=== PATIENT | female | born 1965 | race Caucasian/White ===

== ENCOUNTER 2017-04-25 12:51 | Emergency (ER) | payer MEDICARE, OTHER ==
[2017-04-25 15:48] LABS: BASOPHIL 0.3 % (0-2); EOSINOPHIL 0.1 % (0-5); HCT 44.2 % (37.0-47.0); HGB 15.1 g/dl (12.5-16.0); LYMPHOCYTE 13.4 % (15-48); MCH 30.6 pg (25.0-31.0); MCHC 34.2 g/dL (32.0-36.0); MCV 89.5 fL (78.0-100.0); MONOCYTE 6.9 % (0-12); NEUTROPHIL 79.3 % (41-80); PLT 416 K/uL (150-400); RBC 4.94 M/uL (4.20-5.40); RDW 15.6 % (11.5-14.0)
[2017-04-25 16:00] LABS: INR 0.95 (0.9-1.2); PROTHROMBIN TIME 12.3 SECONDS (11.7-14.0); PTT 27.8 SECONDS (23.2-31.4)
[2017-04-25 16:11] LABS: ALBUMIN 4.8 g/dL (3.5-5.0); BILIRUBIN - TOTAL 0.2 mg/dL (0.1-1.0); CKMB 1.97 ng/mL (0.97-4.94); CREATININE 0.6 mg/dL (0.5-1.0); GLOBULIN (CALCULATION) 2.6 g/dL (2.2-4.2); MAGNESIUM 2.22 mg/dL (1.40-2.10); MYOGLOBIN 23 ng/mL (26-65); POTASSIUM 3.5 mmol/L (3.5-5.1); PRO-BNP 61 pg/mL (0-125); TOTAL PROTEIN 7.4 g/dL (6.4-8.3); TROPONIN T < 0.010 ng/mL
== END 2017-04-25 18:20 | disposition home or self-care (01) ==
LOC: FER 12:51
PROVIDERS: Emergency Medicine
DX: I10 Essential (primary) hypertension (principal); K21.9 Gastro-esophageal reflux disease without esophagitis; E78.5 Hyperlipidemia, unspecified; F17.210 Nicotine dependence, cigarettes, uncomplicated; Z88.0 Allergy status to penicillin; Z88.5 Allergy status to narcotic agent; Z88.6 Allergy status to analgesic agent; Z79.899 Other long term (current) drug therapy; Z79.02 Long term (current) use of antithrombotics/antiplatelets
CPT/HCPCS: 36415; 71010; 80053; 82550; 82553; 83735; 83874; 83880; 84484; 85025; 85610; 85730; 93005; J2930

== ENCOUNTER 2022-06-03 19:42 | Emergency (ER) | payer MEDICARE, OTHER ==
[~2022-06-03 19:42] MED LIST: BENADRYL25 MG PO; EFFEXOR XR150 MG PO; LIPITOR40 MG PO; LOPRESSOR25 MG PO; LYRICA 50MG CAP50 MG PO; MEDROL 4MG DOSEP4 MG PO; NYSTATIN SUSP1 ML/ML SSW; PERCOCET 5-3251 EACH PO; PLAVIX75 MG PO; PREDNISONE 20MG20 MG PO; PRINIVIL10 MG PO; SINGULAIR10 MG PO; TRAZODONE 100M100 MG PO; VITAMIN B-121000 MC1 PO; WELLBUTRIN100 MG PO; ZANTAC150 MG PO; ZPAK PO
== END 2022-06-03 21:34 | disposition home or self-care (01) ==
LOC: FER 19:42
DX: S62.617A Displaced fracture of proximal phalanx of left little finger, initial encounter for closed fracture (principal); I10 Essential (primary) hypertension; Z88.2 Allergy status to sulfonamides; Z88.5 Allergy status to narcotic agent; Z88.6 Allergy status to analgesic agent; W01.0XXA Fall on same level from slipping, tripping and stumbling without subsequent striking against object, initial encounter; Y92.009 Unspecified place in unspecified non-institutional (private) residence as the place of occurrence of the external cause
CPT/HCPCS: 73130

== ENCOUNTER 2022-07-18 08:51 | Emergency (ER) | payer MEDICARE ==
[2022-07-18 09:32] LABS: BASOPHIL 0.9 % (0-2); EOSINOPHIL 0.4 % (0-5); HCT 40.5 % (37.0-47.0); LYMPHOCYTE 26.5 % (15-48); MCH 31.3 pg (25.0-31.0); MCHC 34.6 g/dL (32.0-36.0); MCV 90.4 fL (78.0-100.0); MONOCYTE 11.2 % (0-12); MPV 9.9 fL (6.0-9.5); NEUTROPHIL 60.6 % (41-80); NRBC 0; PLT 219 K/uL (150-400); RBC 4.48 M/uL (4.20-5.40); RDW 13.4 % (11.5-14.0); WBC 6.9 K/uL (4.0-10.5)
[2022-07-18 09:53] LABS: BILIRUBIN - TOTAL 0.2 mg/dL (0.2-1.0); BUN/CREAT RATIO (CALC) 10.4 RATIO; CREATININE 0.67 mg/dL (0.51-0.95); GLOBULIN (CALCULATION) 3.2 g/dL; POTASSIUM 4.1 mmol/L (3.5-5.1); TOTAL PROTEIN 7.2 g/dL (6.4-8.2)
[2022-07-18 11:17] LABS: PROTHROMBIN TIME 12.9 SECONDS (11.9-13.9); PTT 28.6 SECONDS (24.9-34.6)
[2022-07-18 11:21] LABS: BILIRUBIN NEGATIVE (NEGATIVE); BLOOD NEGATIVE Ery/uL (NEGATIVE); CLARITY CLEAR (CLEAR); COLOR YELLOW (YELLOW); GLUCOSE (U) NORMAL (NORMAL); LEUKOCYTES NEGATIVE Leu/uL (NEGATIVE); NITRITE NEGATIVE (NEGATIVE); PROTEIN NEGATIVE (NEGATIVE); SPECIFIC GRAVITY 1.015 (1.001-1.030); UROBILINOGEN 0.2 mg/dL (0.2-1.0)
[2022-07-18 13:11] LABS: CORONAVIRUS 2019 SARS-COV-2 NEGATIVE (NEGATIVE); INFLUENZA A NAA NEGATIVE (NEGATIVE)
== END 2022-07-18 12:33 | disposition home or self-care (01) ==
LOC: FER 08:51
PROVIDERS: Emergency Medicine; Internal Medicine
DX: R07.89 Other chest pain (principal); M62.82 Rhabdomyolysis; I10 Essential (primary) hypertension; Z20.822 Contact with and (suspected) exposure to COVID-19; Z88.1 Allergy status to other antibiotic agents; Z88.5 Allergy status to narcotic agent; Z87.891 Personal history of nicotine dependence
CPT/HCPCS: 36415; 71045; 80053; 81003; 84484; 85025; 85610; 85730; 93005; J1885; J2550; J7030; U0002